=== PATIENT | male | born 1935 | race Caucasian/White ===

== ENCOUNTER 2019-03-13 10:28 | Inpatient (IN) | payer MEDICARE ==
[2019-03-13] VITALS (7 sets, daily range): BP systolic 129–182; BP diastolic 75–98
[~2019-03-13] VITALS: Ht 177.8 cm; Wt 90.2 kg
--- NOTE | ~2019-03-13 | EKG ---
[place], [place] ELECTROCARDIOGRAM REPORT NAME: RONAK BRITTON JR UNIT #: [id number] ROOM: 505 DOCTOR: DAVID DRAFT REPORT BIRTHDATE: [birth year] [facility] Test Date: 2019-03-13 Test Time: 14:05:14 Pat Name: RONAK BRITTON Department: Room: 505 Gender: M Rerecording Mixer: : 1935 Requested By: KIMBERLY JOHNSON Order Number: [id number] Reading MD: Valentin Ibarra MD Measurements Intervals [place] Rate: 82 P: 38 AR: 261 QRS: 106 QRSD: 146 T: 7 QT: 388 QTc: 453 Interpretive Statements Sinus rhythm Prolonged AR interval RBBB and LPFB Compared to ECG 03/13/2019 10:35:05 Left posterior fascicular block now present Electronically Signed On 03-16-2019 12:02:14 PDT by Valentin Ibarra MD CM:EKGRPT:ELECTROCARDIOGRAM REPORT [id number] KIMBERLY HERNANDEZ DRAFT REPORT KIMBERLY JOHNSON M.D.
--- NOTE | ~2019-03-13 | EKG ---
[place], [place] ELECTROCARDIOGRAM REPORT NAME: RONAK BRITTON JR UNIT #: [id number] ROOM: 505 DOCTOR: DAVID DRAFT REPORT BIRTHDATE: [birth year] [facility] Test Date: 2019-03-13 Test Time: 16:33:25 Pat Name: RONAK BRITTON Department: Room: 505 Gender: M Senior Tax Analyst: SOC[place] : 1935 Requested By: KIMBERLY JOHNSON Order Number: [id number] Reading MD: Valentin Ibarra MD Measurements Intervals [place] Rate: 72 P: 0 IN: 296 QRS: 69 QRSD: 157 T: 3 QT: 431 QTc: 472 Interpretive Statements Sinus rhythm Prolonged IN interval Right bundle branch block Compared to ECG 03/13/2019 10:35:05 No significant changes Electronically Signed On 03-16-2019 12:02:54 PDT by Valentin Ibarra MD CM:EKGRPT:ELECTROCARDIOGRAM REPORT [id number] KIMBERLY HERNANDEZ DRAFT REPORT KIMBERLY JOHNSON M.D.
--- NOTE | ~2019-03-13 | EKG ---
[place], [place] ELECTROCARDIOGRAM REPORT NAME: RONAK BRITTON JR UNIT #: [id number] ROOM: 505 DOCTOR: DAVID DRAFT REPORT BIRTHDATE: [birth year] [facility] Test Date: 2019-03-13 Test Time: 10:35:05 Pat Name: RONAK BRITTON Department: Room: 505 Gender: M Disabilities Services Officer: : 1935 Requested By: KIMBERLY JOHNSON Order Number: [id number] Reading MD: Walker Simmons MD Measurements Intervals [place] Rate: 69 P: 20 SD: 296 QRS: 76 QRSD: 153 T: -2 QT: 414 QTc: 444 Interpretive Statements Sinus rhythm Prolonged SD interval Right bundle branch block No previous ECG available for comparison Electronically Signed On 03-13-2019 10:35:19 PDT by Walker Simmons MD CM:EKGRPT:ELECTROCARDIOGRAM REPORT [id number] KIMBERLY HERNANDEZ DRAFT REPORT KIMBERLY JOHNSON M.D.
[2019-03-13] MEDS ORDERED: TAMSULOSIN HCL0.4 MG PO (10:32)
[2019-03-13 10:46] LABS: BASO # 0.1 10*3/uL (0.0-0.1); BASO % 0.5 % (0.0-1.0); EOS # 0.1 10*3/uL (0.0-0.4); EOS % 1.2 % (1.0-4.0); HEMATOCRIT 42.9 % (42.0-52.0); HEMOGLOBIN 14.3 g/dl (14.0-18.0); LYMPH % 19.3 % (27.0-41.0); MEAN CELL VOLUME 98.2 fl (80.0-94.0); MEAN CORPUSCULAR HGB 32.7 pg (27.0-31.0); MEAN CORPUSCULAR HGB CONC 33.3 g/dl (33.0-37.0); MEAN PLATELET VOLUME 9.4 fl (9.6-12.3); MONO # 0.8 10*3/uL (0.1-1.0); MONO % 7.6 % (3.0-9.0); NEUT # 7.3 10*3/uL (2.3-7.9); PLATELET COUNT AUTOMATED 233 10*3/uL (130-400); RED BLOOD COUNT 4.37 10*6/uL (4.50-5.90); RED CELL DISTRI WIDTH 12.2 % (0-14.5); WHITE BLOOD COUNT 10.3 10*3/uL (4.8-10.8)
[2019-03-13 10:57] LABS: ACT PARTIAL THROMBO TIME 23.6 SECONDS (20.0-32.1); INTERNATIONAL NORM RATIO 0.9 (2.0-3.5)
[2019-03-13 11:02] LABS: ALBUMIN 3.5 gm/dl (3.1-4.5); ALKALINE PHOSPHATASE 51 U/L (45-117); BUN 26 mg/dl (7-24); CHLORIDE 105 mmol/L (98-107); CREATININE 1.15 mg/dL (0.70-1.30); POTASSIUM 4.2 mmol/L (3.5-5.1); SGOT/AST 20 IU/L (3-35); SGPT/ALT 25 U/L (12-78); SODIUM 139 mmol/L (136-145); TOTAL PROTEIN 6.6 gm/dL (6.4-8.2); TROPONIN I < 0.015 ng/ml (<0.045)
--- NOTE | 2019-03-13 11:11 | NUR ---
PT POSITIONED FOR COMFORT,SAFETY PRECAUTIONS INTACT AND CALL LIGHT WITHIN REACH NO ADDITIONAL COMPLAINTS VOICED.
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
--- NOTE | 2019-03-13 12:18 | NUR ---
A 83, admitted to , under the services of EUSEBIA Stauffer DO with a diagnosis of SYNCOPE. Chief complaint is SYNCOPE. Patient arrived via stretcher from ER. Monitor applied. Initial assessment completed. Vital signs taken and recorded. EUSEBIA STAUFFER DO notified of admission to the unit. Orders received. See assessment for past medical history, medications and allergies. Patient and/or family oriented to unit. [facility]. Clothing/patient valuable form completed. FRANCISCO PALMER
--- NOTE | 2019-03-13 15:54 | NUR ---
PT PULLED IV IN HAND OUT, DRESSING APPLIED. NEW IV STARTED LEFT FA #20
--- NOTE | 2019-03-13 20:00 | NUR ---
PT AMBULATORY TO BATHROOM AND BACK TO BED. DENIES ANY DIZZINESS, STATES HE HASN'T HAD ANY DIZZINESS. RESP-EASY AND REGULAR. CALL LIGHT IN REACH. SEE SHIFT ASSESSMENT.
[2019-03-14] VITALS: BP 157/79
--- NOTE | 2019-03-14 00:10 | NUR ---
RESTING IN BED WITH EYES CLOSED. RESP-EASY AND REGULAR. NO C/O AT THIS TIME. CALL LIGHT IN REACH. SEE SHIFT ASSESSMENT.
--- NOTE | 2019-03-14 04:00 | NUR ---
SLEEPING IN BED. RESP-EASY AND REGULAR. CALL LIGHT IN REACH.
--- NOTE | 2019-03-14 06:00 | NUR ---
SLEEPING IN BED. RESP-EASY AND REGULAR. CALL LIGHT IN REACH.
[2019-03-14 06:59] LABS: ACT PARTIAL THROMBO TIME 26.1 SECONDS (20.0-32.1); BASO % 0.4 % (0.0-1.0); EOS # 0.2 10*3/uL (0.0-0.4); EOS % 2.3 % (1.0-4.0); HEMATOCRIT 42.9 % (42.0-52.0); HEMOGLOBIN 14.3 g/dl (14.0-18.0); LYMPH # 2.7 10*3/uL (1.3-4.4); LYMPH % 29.2 % (27.0-41.0); MEAN CELL VOLUME 98.2 fl (80.0-94.0); MEAN CORPUSCULAR HGB 32.7 pg (27.0-31.0); MEAN CORPUSCULAR HGB CONC 33.3 g/dl (33.0-37.0); MEAN PLATELET VOLUME 9.7 fl (9.6-12.3); MONO # 0.9 10*3/uL (0.1-1.0); MONO % 9.2 % (3.0-9.0); NEUT # 5.4 10*3/uL (2.3-7.9); NEUT % 58.6 % (47.0-73.0); PLATELET COUNT AUTOMATED 251 10*3/uL (130-400); RED BLOOD COUNT 4.37 10*6/uL (4.50-5.90); RED CELL DISTRI WIDTH 12.4 % (0-14.5); WHITE BLOOD COUNT 9.2 10*3/uL (4.8-10.8)
[2019-03-14 07:20] LABS: ALBUMIN 3.3 gm/dl (3.1-4.5); BUN 20 mg/dl (7-24); CHLORIDE 107 mmol/L (98-107); CHOLESTEROL 184 mg/dL (<200); CREATININE 0.99 mg/dL (0.70-1.30); PHOSPHOROUS 3.2 mg/dL (2.5-4.9); SGOT/AST 21 IU/L (3-35); SGPT/ALT 24 U/L (12-78); SODIUM 141 mmol/L (136-145); TOTAL PROTEIN 6.5 gm/dL (6.4-8.2); TRIGLYCERIDES 96 mg/dl (<150); VLDL CHOLESTEROL 19 mg/dL (6-40)
[2019-03-14 07:26] LABS: ALKALINE PHOSPHATASE 50 U/L (45-117); HDL CHOLESTEROL 47 mg/dl (40-60); LDL CHOLESTEROL 118 mg/dL (9-159)
[2019-03-14] MEDS ORDERED: ONE DAILY ESSE1 EACH PO (07:50)
[2019-03-14 08:00] VITALS: BP 166/86
[2019-03-14 08:00] LABS: VITAMIN D, 25-HYDROXY 42.3 ng/mL (30-100)
--- NOTE | 2019-03-14 09:26 | NUR ---
PHYSICAL THERAPY PAtient having ECHO at this time. Theresa Taylor,PT
--- NOTE | 2019-03-14 10:31 | NUR ---
Patient not available for OT evaluation as he is getting an ECHO. Ani Busby OTR/L
[2019-03-14 12:00] VITALS: BP 142/78
--- NOTE | 2019-03-14 12:03 | NUR ---
Gear Finisher in to talk to patient. Patient states lives at HOME with ALONE WITH DAUGHTER [address]ING [address] There are NO steps in the home. Physician: PRESTON CRAIG Pharmacy: [facility] Home health services: NONE Patient's level of ADLs: INDEPENDENT Patient has working utilities: YES DME: NONE Follow-up physician's appointment after d/c: WILL BE MADE BY HOSPITALIST NURSE DIRECTOR ON DISCHARGE Does patient want to access PORTAL?: NO Discharge plan PT LIVES AT HOME ALONE. STATES HE IS INDEPENDENT IN HIS CARE AND DRIVES. DENIES ANY NEEDS ON DISCHARGE. WILL CONTINUE TO FOLLOW. STATES HIS DAUGHTER WILL TAKE HIM HOME. . DANY PABLO
--- NOTE | 2019-03-14 14:59 | NUR ---
Discharge instructions reviewed with patient/family. Patient receptive and verbalizes understanding. Follow-up care arranged. Written instructions given to patient/family. NINA MANCILLA
--- NOTE | 2019-03-14 15:09 | NUR ---
PHYSICAL THERAPY PAtient discharged. Thank you for this referral. Theresa Taylor,PT
--- NOTE | 2019-03-14 15:22 | NUR ---
PT DISCHARGED AT THIS TIME VIA WHEELCHAIR WITH BURAK FARAH.
== END 2019-03-14 15:22 | disposition home or self-care (01) | DRG 312 ==
LOC: ED 10:28 → EDHOLD 11:53 → 5E 11:53
PROVIDERS: Emergency Medicine; Student in an Organized Health Care Education/Training Program; ADMIT Emergency Medicine
DX: R55 Syncope and collapse (principal); E83.41 Hypermagnesemia; M19.90 Unspecified osteoarthritis, unspecified site; N40.0 Benign prostatic hyperplasia without lower urinary tract symptoms; Z96.659 Presence of unspecified artificial knee joint; R73.9 Hyperglycemia, unspecified; D72.810 Lymphocytopenia; R60.9 Edema, unspecified; Z79.899 Other long term (current) drug therapy; Z82.3 Family history of stroke; Z90.49 Acquired absence of other specified parts of digestive tract; Z82.49 Family history of ischemic heart disease and other diseases of the circulatory system

== ENCOUNTER 2022-07-27 09:49 | Inpatient (IN) | payer MEDICARE ==
[~2022-07-27] VITALS: Ht 180.3 cm; Wt 88.9 kg
[~2022-07-27 09:49] MED LIST: ONE DAILY ESSE1 EACH PO; TAMSULOSIN HCL0.4 MG PO
[2022-07-27 10:05] VITALS: BP 140/73
[2022-07-27 10:31] LABS: BASO # 0.1 10*3/uL (0.0-0.1); BASO % 0.7 % (0.0-1.0); EOS # 0.1 10*3/uL (0.0-0.4); EOS % 1.6 % (1.0-4.0); HEMATOCRIT 42.4 % (42.0-52.0); LYMPH # 1.7 10*3/uL (1.3-4.4); LYMPH % 23.5 % (27.0-41.0); MEAN CELL VOLUME 97.2 fl (80.0-94.0); MEAN PLATELET VOLUME 9.3 fl (9.6-12.3); MONO # 0.7 10*3/uL (0.1-1.0); MONO % 9.1 % (3.0-9.0); NEUT # 4.7 10*3/uL (2.3-7.9); NEUT % 64.8 % (47.0-73.0); PLATELET COUNT AUTOMATED 276 10*3/uL (130-400); RED BLOOD COUNT 4.36 10*6/uL (4.50-5.90); RED CELL DISTRI WIDTH 11.8 % (0-14.5); WHITE BLOOD COUNT 7.3 10*3/uL (4.8-10.8)
[2022-07-27 10:46] LABS: ALKALINE PHOSPHATASE 59 U/L (45-117); BUN 28 mg/dl (7-24); CHLORIDE 103 mmol/L (98-107); CREATININE 1.15 mg/dL (0.70-1.30); POTASSIUM 4.4 mmol/L (3.5-5.1); SGOT/AST 21 IU/L (3-35); SGPT/ALT 22 U/L (12-78); SODIUM 135 mmol/L (136-145); TOTAL PROTEIN 7.1 gm/dL (6.4-8.2)
[2022-07-27 11:34] VITALS: BP 134/59
[2022-07-27 12:00] VITALS: BP 120/74
[2022-07-27] MEDS ORDERED: LISINOPRIL20 MG PO (12:42)
[2022-07-27 16:00] VITALS: BP 122/60
[2022-07-27 20:00] VITALS: BP 142/63
[2022-07-28] VITALS: BP 137/58
[2022-07-28 06:23] LABS: BASO # 0.1 10*3/uL (0.0-0.1); BASO % 0.7 % (0.0-1.0); EOS # 0.3 10*3/uL (0.0-0.4); EOS % 3.8 % (1.0-4.0); HEMATOCRIT 40.6 % (42.0-52.0); LYMPH # 2.3 10*3/uL (1.3-4.4); LYMPH % 32.1 % (27.0-41.0); MEAN CELL VOLUME 98.1 fl (80.0-94.0); MEAN CORPUSCULAR HGB 32.6 pg (27.0-31.0); MEAN CORPUSCULAR HGB CONC 33.3 g/dl (33.0-37.0); MEAN PLATELET VOLUME 9.4 fl (9.6-12.3); MONO # 0.7 10*3/uL (0.1-1.0); MONO % 10.1 % (3.0-9.0); NEUT # 3.8 10*3/uL (2.3-7.9); NEUT % 52.9 % (47.0-73.0); PLATELET COUNT AUTOMATED 263 10*3/uL (130-400); RED BLOOD COUNT 4.14 10*6/uL (4.50-5.90); RED CELL DISTRI WIDTH 11.9 % (0-14.5); WHITE BLOOD COUNT 7.2 10*3/uL (4.8-10.8)
[2022-07-28 06:33] LABS: BUN 23 mg/dl (7-24); CHLORIDE 108 mmol/L (98-107); CHOLESTEROL 173 mg/dL (<200); CREATININE 0.95 mg/dL (0.70-1.30); FREE T4 0.89 ng/dl (0.76-1.46); LDL CHOLESTEROL 110 mg/dL (9-159); POTASSIUM 5.1 mmol/L (3.5-5.1); SODIUM 140 mmol/L (136-145); TRIGLYCERIDES 93 mg/dl (<150)
[2022-07-28 07:30] VITALS: BP 142/90
[2022-07-28 07:33] LABS: VITAMIN D, 25-HYDROXY 50.8 ng/mL (30-100)
[2022-07-28 12:00] VITALS: BP 142/79
[2022-07-28 16:00] VITALS: BP 123/67
[2022-07-28] MEDS ORDERED: Synthroid,Levo25 MCG PO (16:42)
== END 2022-07-28 17:40 | disposition home or self-care (01) | DRG 312 ==
LOC: ED 09:49 → 5E 11:42 → EDHOLD 11:42 → 5E 12:41
PROVIDERS: Student in an Organized Health Care Education/Training Program; ADMIT Internal Medicine; ATTEND Internal Medicine
DX: R55 Syncope and collapse (principal); E87.1 Hypo-osmolality and hyponatremia; R73.9 Hyperglycemia, unspecified; E86.0 Dehydration; D64.9 Anemia, unspecified; E03.9 Hypothyroidism, unspecified; N40.0 Benign prostatic hyperplasia without lower urinary tract symptoms; I10 Essential (primary) hypertension; M19.90 Unspecified osteoarthritis, unspecified site; I45.10 Unspecified right bundle-branch block; Z90.49 Acquired absence of other specified parts of digestive tract; Z82.49 Family history of ischemic heart disease and other diseases of the circulatory system